=== PATIENT | male | born 1935 | race Caucasian/White ===

== ENCOUNTER 2018-03-04 17:54 | Inpatient (IN) | payer OTHER ==
[~2018-03-04] VITALS: Ht 172.7 cm; Wt 90.5 kg
[~2018-03-04 17:54] MED LIST: BENICAR40 MG PO; CENTRUM SILV1 TABLE1 PO; CENTRUM SILVER1 EAC1 PO; COUMADIN PO; Coumadin dosing per PO; DELTASONE2.5 MG PO; DOCUSATE SODIU100 MG PO; FEOSOL325 MG PO; HYDROCODON-ACE1 EAC7 PO; HYDRODIURIL,O12.5 M2 PO; K-DUR10 ME2 PO; LIPITOR20 MG PO; LOPRESSOR12.5 MG PO; LOPRESSOR25 MG PO; LOVENOX30 MG/0.3 SC; Levothroid,Synthroid PO; NORVASC5 MG PO; PRESERVISION T1 EACH PO; PreserVision Softgel PO; SENOKOT S,PE1 TABLET PO; SYNTHROID125 MCG PO; Tums PO; ULTRAM50 MG PO; Vicodin,Lortab 5/500 PO; XALATAN 0.50 DROP/2. LEFT EYE
[2018-03-04 18:37] LABS: HEMATOCRIT 34.7 % (38.0-50.0); HEMOGLOBIN 11.8 G/DL (12.5-16.6); MCH 30.6 PG (29.0-34.0); MCV 90.1 FL (86-99); NRBC (%) 0.3 /100 WBC (0-0); PLATELET COUNT 104 K/uL (156-360); RBC DIS.WIDTH-CV 13.1 % (11.8-14.6); RBC DIS.WIDTH-SD 43.2 % (39-53); RED BLOOD COUNT 3.85 M/uL (4.00-5.50); WHITE BLOOD COUNT 12.9 K/uL (4.1-10.2)
[2018-03-04 18:49] LABS: ALBUMIN 3.4 g/dL (3.2-4.8); CHLORIDE 99 mEq/L (99-109); POTASSIUM 3.8 mEq/L (3.7-5.4); SODIUM 133 mEq/L (136-147)
[2018-03-04 18:51] LABS: GLUCOSE 121 mg/dL (70-99); TOTAL PROTEIN 6.4 g/dL (6.4-8.3)
[2018-03-04 18:53] LABS: TOTAL BILIRUBIN 1.5 mg/dL (0.0-1.0)
[2018-03-04 18:55] LABS: ALKALINE PHOSPHATASE 717 IU/L (3-129); CREATININE 1.7 mg/dL (0.6-1.3); GFR ESTIMATE (CALCULATED) 41 mL/min/ (58.99-99999)
[2018-03-04 18:56] LABS: AST (GOT) 46 IU/L (2-34); UREA NITROGEN (BUN) 23 mg/dL (9-23)
[2018-03-04 18:58] LABS: ALT (GPT) 14 IU/L (3-49); LIPASE 55 U/L (1.0-51.0); TROP-I INTERPRETATION INDETERMINATE; TROPONIN-I 0.45 ng/mL (0.0-0.30)
[2018-03-04] MEDS ORDERED: NORVASC10 MG PO (20:17)
[2018-03-04] MEDS ORDERED: APRESOLINE25 MG PO (20:19)
[2018-03-04] MEDS ORDERED: LO-DOSE ASPIRIN81 M1 PO (20:19)
[2018-03-04] MEDS ORDERED: PERCOCET 10/1 TABLET PO (20:20)
[2018-03-04] MEDS ORDERED: TYLENOL ARTHRI650 MG PO (20:20)
[2018-03-04] MEDS ORDERED: PREDNISONE5 MG PO ×5 (20:22→20:28)
[2018-03-04 22:19] LABS: TROP-I INTERPRETATION INDETERMINATE; TROPONIN-I 0.35 ng/mL (0.0-0.30)
[2018-03-05] VITALS (7 sets, daily range): BP systolic 116–137; BP diastolic 57–71
[2018-03-05 02:06] LABS: HEMATOCRIT 30.6 % (38.0-50.0); HEMOGLOBIN 10.3 G/DL (12.5-16.6); MCH 30.4 PG (29.0-34.0); MCHC 33.7 G/DL (30.0-36.0); MCV 90.3 FL (86-99); NRBC (%) 0.3 /100 WBC (0-0); PLATELET COUNT 85 K/uL (156-360); RBC DIS.WIDTH-CV 12.9 % (11.8-14.6); RBC DIS.WIDTH-SD 42.5 % (39-53); RED BLOOD COUNT 3.39 M/uL (4.00-5.50); WHITE BLOOD COUNT 11.2 K/uL (4.1-10.2)
[2018-03-05 02:12] LABS: INTER. NORMALIZED RATIO 1.4
[2018-03-05 02:15] LABS: PTT 27.8 SEC (25-37)
[2018-03-05 02:28] LABS: TROP-I INTERPRETATION INDETERMINATE; TROPONIN-I 0.31 ng/mL (0.0-0.30)
[2018-03-05 09:07] LABS: APPEARANCE CLEAR ((CLEAR)); BILIRUBIN NEGATIVE; BLOOD SMALL; COLOR YELLOW ((YELLOW)); GLUCOSE (STRIP) NEGATIVE; KETONES 5; LEUKOCYTES NEGATIVE; NITRITE NEGATIVE; PROTEIN (STRIP) 100; SPECIFIC GRAVITY 1.014 (1.000-1.030); UROBILINOGEN 0.2 MG/DL (0.2-1.0)
[2018-03-05 09:30] LABS: BACTERIA NONE SEEN /HPF; EPITHELIAL CELLS NONE SEEN /HPF; MUCUS TRACE /LPF; UCUL ADDED? NO; WHITE BLOOD CELLS 0-5 /HPF (0-5)
[2018-03-05 11:35] LABS: ALKALINE PHOSPHATASE 558 IU/L (3-129); ALT (GPT) 9 IU/L (3-49); AST (GOT) 33 IU/L (2-34); CHLORIDE 102 MEQ/L (99-109); CREATININE 1.6 MG/DL (0.6-1.3); GFR ESTIMATE (CALCULATED) 44 mL/min/ (58.99-99999); GLUCOSE 94 mg/dL (70-99); SODIUM 136 MEQ/L (136-147); TOTAL BILIRUBIN 1.2 MG/DL (0.0-1.0); TOTAL PROTEIN 5.5 G/DL (6.4-8.3); UREA NITROGEN (BUN) 21 mg/dL (9-23)
[2018-03-06 03:38] VITALS: BP 131/65
[2018-03-06 05:50] LABS: HEMATOCRIT 29.4 % (38.0-50.0); HEMOGLOBIN 9.8 G/DL (12.5-16.6); MCH 30.3 PG (29.0-34.0); MCHC 33.3 G/DL (30.0-36.0); NRBC (%) 0.3 /100 WBC (0-0); PLATELET COUNT 107 K/uL (156-360); RBC DIS.WIDTH-CV 13.2 % (11.8-14.6); RBC DIS.WIDTH-SD 43.6 % (39-53); RED BLOOD COUNT 3.23 M/uL (4.00-5.50); WHITE BLOOD COUNT 9.4 K/uL (4.1-10.2)
[2018-03-06 06:16] LABS: ALBUMIN 2.6 G/DL (3.2-4.8); ALKALINE PHOSPHATASE 432 IU/L (3-129); ALT (GPT) 12 IU/L (3-49); AST (GOT) 30 IU/L (2-34); CHLORIDE 101 MEQ/L (99-109); CREATININE 1.7 MG/DL (0.6-1.3); GFR ESTIMATE (CALCULATED) 41 mL/min/ (58.99-99999); GLUCOSE 105 mg/dL (70-99); SODIUM 137 MEQ/L (136-147); TOTAL PROTEIN 5.3 G/DL (6.4-8.3); UREA NITROGEN (BUN) 24 mg/dL (9-23)
[2018-03-06 06:18] LABS: TOTAL BILIRUBIN 0.7 MG/DL (0.0-1.0)
[2018-03-06 07:46] VITALS: BP 120/57
[2018-03-06 09:32] LABS: DIRECT BILIRUBIN 0.2 mg/dL (0.0-0.3); LIPASE 90 U/L (1.0-51.0)
[2018-03-06] MEDS ORDERED: PEPCID20 MG PO (10:39)
[2018-03-06 11:07] VITALS: BP 115/57
[2018-03-06] MEDS ORDERED: ATENOLOL25 MG PO (11:21)
[2018-03-06] MEDS ORDERED: AUGMENTIN875 MG PO (16:33)
== END 2018-03-06 12:50 | disposition home or self-care (01) | DRG 445 ==
LOC: EME 17:54 → EDOF 23:29 → 4EAST 03-05 00:57
PROVIDERS: Hospitalist; Nurse Practitioner Family; Physician Assistant
DX: K80.50 Calculus of bile duct without cholangitis or cholecystitis without obstruction (principal); I35.0 Nonrheumatic aortic (valve) stenosis; R09.02 Hypoxemia; I70.0 Atherosclerosis of aorta; I12.9 Hypertensive chronic kidney disease with stage 1 through stage 4 chronic kidney disease, or unspecified chronic kidney disease; K21.9 Gastro-esophageal reflux disease without esophagitis; E78.5 Hyperlipidemia, unspecified; N18.3 Chronic kidney disease, stage 3 (moderate); M35.3 Polymyalgia rheumatica; M51.37 Other intervertebral disc degeneration, lumbosacral region; R79.89 Other specified abnormal findings of blood chemistry; I25.110 Atherosclerotic heart disease of native coronary artery with unstable angina pectoris; E03.9 Hypothyroidism, unspecified; M19.90 Unspecified osteoarthritis, unspecified site; D69.6 Thrombocytopenia, unspecified; H91.90 Unspecified hearing loss, unspecified ear; K59.00 Constipation, unspecified; R74.0 Nonspecific elevation of levels of transaminase and lactic acid dehydrogenase [LDH]; D64.9 Anemia, unspecified; H40.9 Unspecified glaucoma; Z95.5 Presence of coronary angioplasty implant and graft; Z96.653 Presence of artificial knee joint, bilateral; Z96.641 Presence of right artificial hip joint; Z87.891 Personal history of nicotine dependence; I25.2 Old myocardial infarction
CPT/HCPCS: 71046; 71250; 74176; 76705; 78227; 78582; 80053; 81003; 82248; 83605; 83690; 83880; 84145 90; 84484; 85027; 85379; 85610; 85730; 87040; 93005; 93306; 93970; 94799; 99281; 99285; A9537; A9540; A9567; J0696; J2543; J7030; S0028; S0030; S0074

== ENCOUNTER 2018-03-08 10:00 | Day surgery (SDC) | payer OTHER ==
[~2018-03-08] VITALS: Ht 175.3 cm; Wt 88.5 kg
[~2018-03-08 10:00] MED LIST changes: +APRESOLINE25 MG PO; +ATENOLOL25 MG PO; +AUGMENTIN875 MG PO; +LO-DOSE ASPIRIN81 M1 PO; +NORVASC10 MG PO; +PEPCID20 MG PO; +PERCOCET 10/1 TABLET PO; +PREDNISONE5 MG PO; +TYLENOL ARTHRI650 MG PO
== END 2018-03-08 14:20 | disposition home or self-care (01) ==
LOC: CATH 10:00
DX: I70.0 Atherosclerosis of aorta (principal); I25.10 Atherosclerotic heart disease of native coronary artery without angina pectoris; Z95.5 Presence of coronary angioplasty implant and graft; E78.5 Hyperlipidemia, unspecified; I10 Essential (primary) hypertension; Z79.82 Long term (current) use of aspirin
CPT/HCPCS: C1769; J1644; J2250; J3010

== ENCOUNTER 2018-03-18 19:18 | Emergency (ER) | payer OTHER ==
[~2018-03-18] VITALS: Ht 172.7 cm; Wt 85.0 kg
[2018-03-18 22:02] VITALS: BP 151/72
== END 2018-03-18 22:03 | disposition home or self-care (01) ==
LOC: EME 19:18
DX: M96.831 Postprocedural hemorrhage of a musculoskeletal structure following other procedure (principal); Z95.2 Presence of prosthetic heart valve; K21.9 Gastro-esophageal reflux disease without esophagitis; N18.9 Chronic kidney disease, unspecified; Z87.891 Personal history of nicotine dependence; Z79.82 Long term (current) use of aspirin
CPT/HCPCS: 99281; 99283